=== PATIENT | female | born 1960 | race Caucasian/White ===

== ENCOUNTER → 2017-02-25 | Outpatient (CLI) | payer BC ==
[2014-06-06 14:45] VITALS: BP 146/74
[2017-02-25 14:44] LABS: CREATININE 1.2 mg/dL (0.6-1.0); GFR 46.6
== END | disposition home or self-care (01) ==
LOC: LAB 14:14
PROVIDERS: ATTEND Psychiatry & Neurology Neurology
DX: G43.709 Chronic migraine without aura, not intractable, without status migrainosus (principal)
CPT/HCPCS: 36415; 80051; 82565; 84520

== ENCOUNTER → 2018-02-04 | Outpatient (CLI) | payer BC ==
[2018-02-04 14:49] LABS: ALT (SGPT) 22 U/L (14-59); ANION GAP 7 (6-14); AST (SGOT) 23 U/L (15-37); BLOOD UREA NITROGEN 21 mg/dL (7-20); CARBON DIOXIDE 27 mmol/L (21-32); CHLORIDE 106 mmol/L (98-107); CREATININE 1.1 mg/dL (0.6-1.0); GFR 51.4; POTASSIUM 3.8 mmol/L (3.5-5.1); SODIUM 140 mmol/L (136-145)
== END | disposition home or self-care (01) ==
LOC: LAB 14:14
DX: G43.709 Chronic migraine without aura, not intractable, without status migrainosus (principal); E78.00 Pure hypercholesterolemia, unspecified
CPT/HCPCS: 36415; 80051; 82565; 84450; 84460; 84520

== ENCOUNTER → 2019-01-11 | Outpatient (CLI) | payer BC ==
[2014-06-06 14:45] VITALS: BP 146/74
[2019-01-11 14:57] LABS: PROTHROMBIN TIME PATIENT 12.7 SEC (11.7-14.0)
[2019-01-11 18:10] LABS: RHEUMATOID FACTOR <10.0 IU/mL (0.0-13.9)
[2019-01-13 19:12] LABS: ANA INTERP Positive (.)
== END | disposition home or self-care (01) ==
LOC: LAB 14:23
PROVIDERS: ATTEND Psychiatry & Neurology Neurology
DX: M54.2 Cervicalgia (principal); G43.709 Chronic migraine without aura, not intractable, without status migrainosus
CPT/HCPCS: 36415; 85049; 85610; 86038; 86431

== ENCOUNTER → 2019-01-20 | Outpatient (CLI) | payer BC ==
[2019-01-20 09:39] LABS: PROTHROMBIN TIME PATIENT 12.6 SEC (11.7-14.0)
[2019-01-20 10:39] VITALS: BP 119/68
[2019-01-20 11:12] LABS: CSF PROTEIN 40.9 mg/dL (15.0-45.0)
[2019-01-20 11:30] VITALS: BP 117/65
[2019-01-20 11:35] LABS: CSF CLARITY CLEAR; CSF COLOR COLORLESS
[2019-01-20 11:36] LABS: CSF RBC COUNT 700 /cmm (Not Established); CSF WBC COUNT 0 /cmm (Not Established)
[2019-01-20 12:30] VITALS: BP 122/63
[2019-01-20 13:30] VITALS: BP 119/66
--- NOTE | 2019-01-20 15:48 | RAD ---
Fluoroscopically guided lumbar puncture, 01/20/2019: History: Pseudotumor cerebra I Under local anesthesia, aseptic conditions and fluoroscopic guidance a lumbar puncture was performed at the L2-3 level utilizing a 20-gauge Neelima spinal needle. Blood-tinged CSF was obtained which cleared. The opening pressure was 13 cm of water. A total of 6 cc of CSF was removed and sent to the lab. The spinal needle was then removed and hemostasis obtained. The patient tolerated the procedure well. She will be observed for 3 hours and then discharged if no problems develop.
[2019-01-20 17:10] LABS: RHEUMATOID FACTOR 10.2 IU/mL (0.0-13.9)
[2019-01-22 09:14] LABS: HERPES SIMPLEX TYPE 1 Negative (Negative); HERPES SIMPLEX TYPE 2 Negative (Negative)
[2019-01-25 18:09] LABS: ANA INTERP Positive (.)
[2019-01-29 12:10] LABS: VIRAL CULT FINAL No virus isolated. (.)
== END | disposition home or self-care (01) ==
LOC: RAD 09:09
PROVIDERS: ATTEND Psychiatry & Neurology Neurology
DX: G93.2 Benign intracranial hypertension (principal); G43.709 Chronic migraine without aura, not intractable, without status migrainosus; Z87.891 Personal history of nicotine dependence; Z90.710 Acquired absence of both cervix and uterus; Z98.890 Other specified postprocedural states
CPT/HCPCS: 36415; 62270; 77003; 82945; 84157; 85049; 85610; 86038; 86431; 87071; 87075; 87102; 87252; 87529; 89051

== ENCOUNTER → 2019-03-07 | Outpatient (CLI) | payer BC ==
[2019-01-20 13:30] VITALS: BP 119/66
--- NOTE | 2019-03-07 16:40 | RAD ---
MRI of the cervical spine without contrast 03/07/2019 CLINICAL HISTORY: Chronic neck pain with numbness and tingling in the hands, right greater than left. TECHNIQUE: Unenhanced T1-weighted, T2-weighted and inversion recovery sagittal and gradient echo and T2-weighted axial images of the cervical spine were obtained. FINDINGS: Comparison is made to radiographs of the cervical spine dated 06/06/2014. Minimal lateral curvature of the cervical spine is seen convex to the right. There is mild straightening of the normal cervical lordosis. Degenerative signal changes are seen involving all of the disks of the cervical spine. Degenerative signal changes are seen within the marrow surrounding these discs. No area of abnormal signal intensity is seen involving the cervical spinal cord. On the axial images throughout the cervical spine, degenerative changes are seen consisting of minimal to mild generalized disc bulges and degenerative changes involving the uncovertebral and facet joints. These findings do not result in significant central spinal canal stenosis at any level. Very mild bilateral neural foraminal stenosis is seen at C6-7. IMPRESSION: Very mild degenerative changes are seen throughout the cervical spine. These findings do not result in significant central spinal canal stenosis at any level. Very mild bilateral neural foraminal stenosis is seen at C6-7. Electronically signed by: Kraig Bhatia MD (03/07/2019 4:37 PM) [id number]
== END | disposition home or self-care (01) ==
LOC: MRI 14:35
PROVIDERS: ATTEND Psychiatry & Neurology Neurology
DX: M47.812 Spondylosis without myelopathy or radiculopathy, cervical region (principal); M48.02 Spinal stenosis, cervical region
CPT/HCPCS: 72141

== ENCOUNTER → 2019-05-06 | Outpatient (CLI) | payer BC ==
[2019-01-20 13:30] VITALS: BP 119/66
--- NOTE | 2019-05-06 14:37 | EEG ---
DATE OF SERVICE: 05/06/2019 EEG NUMBER: [id number]. OBJECTIVE: This is a 58-year-old female patient with episodes of sudden falls. EEG was requested to help rule out drop attack seizure. METHODS: Twenty electrodes were applied according to the international 10-20 electrode placement system. EKG monitoring, hyperventilation, intermittent photic stimulation, monopolar and bipolar montages are routinely utilized. The record was obtained on a digital system with video monitoring. FINDINGS: 1. Background: The patient was recorded in the awake, drowsy, and sleep states. The overall background amplitude is 10-30 microvolts. A posterior dominant rhythm of 8-9 Hz is observed. 2. Abnormalities: No specific epileptiform discharge or electrographic seizure is seen. No focal or diffuse slowing. 3. Activation: Hyperventilation was performed with good efforts and normal response. Intermittent photic stimulation was performed with photic driving. No specific epileptiform discharge or electrographic seizure induced by hyperventilation or intermittent photic stimulation. IMPRESSION: This EEG is a normal study for the awake, drowsy, and sleep states. No focal, lateralizing, specific epileptiform discharge, or electrographic seizure is seen. ALEIDA VELAZQUEZ MD DR: CHASITY/radha JOB#: [id number] / [id number] AGATHA
== END | disposition home or self-care (01) ==
LOC: RT 09:17
PROVIDERS: ATTEND Psychiatry & Neurology Neurology
DX: H93.13 Tinnitus, bilateral (principal); R20.2 Paresthesia of skin; E66.9 Obesity, unspecified; G43.709 Chronic migraine without aura, not intractable, without status migrainosus; Z72.820 Sleep deprivation; W19.XXXA Unspecified fall, initial encounter
CPT/HCPCS: 95816